=== PATIENT | male | born 1955 | race Caucasian/White ===

== ENCOUNTER 2017-06-02 11:58 | Day surgery (SDC) | payer OTHER ==
[~2017-06-02] VITALS: Ht 172.7 cm; Wt 94.8 kg
[~2017-06-02 11:58] MED LIST: 0.9% Sodium Chloride 1,000 ML IV SCH; ALLO300T2 PO; FLUT9.9S NS; GLUC-210 PO; HYG25 PO; LISI40TA PO; MULT-666 PO; Sodium Chloride LOK Flush 10 mL Syringe IV PRN; [UNRECOGNIZED DRUG - CODE] PO; fentaNYL-PF 50 mCg/mL 2 mL Inj IVPUSH PRN
[2017-06-02 13:08] VITALS: BP 116/75; PULSE 58; O2SAT 97
--- NOTE | 2017-06-02 14:26 | PCM.ENDCOL ---
Colonoscopy Date of Service: Jun 02, 2017 Physician Tyler Hauser MD Pre Procedure Diagnosis: Screening history of colon polyp Post Procedure Dx & Findings: Polyp hemorrhoids and diverticulosis Procedure Colonoscopy PROCEDURE IN DETAIL: Prep adequate Withdrawal time 10 minutes After unremarkable rectal examination the Olympus video colonoscope was inserted patient's anal canal and was advanced to cecum. Landmarks were identified including the ileocecal valve and appendiceal orifice. Scope was withdrawn systematically. Visualized colonic mucosa showed healthy shiny mucosa with normal healthy-appearing vasculature. In the ascending colon there were 2 polyps. They are both about 4 mm in size. They are both removed completely using cold snare. Patient had diverticulosis mostly in the sigmoid colon however patient had a few isolated ones all the way up to the ascending colon. In the rectum retroflexion was done which showed hemorrhoids. Anal canal was inspected carefully on the way out and hemorrhoids noted. Impression Polyp 2 status post complete removal Diverticuli Hemorrhoids History of polyps Recommendation Repeat colonoscopy in 5 years Diverticular diet Presedation Assessment Risks and Benefits Informed consent was obtained from the patient after all risks and benefits including but not limited to drug reaction, infection, pain, bleeding, perforation, as well as alternatives were discussed. Patient monitoring Continuous pulse oximetry, cardiac monitoring, blood pressure monitoring, IV access, and oxygen at 2L per nasal cannula. Periprocedural Fentanyl: Fentanyl 125mcg Incrementally Midazolam: Midazolam 6mg Incrementally Complications There were no periprocedural complications identified. Post Procedure Plan Post Procedure Recommendations 1. Restrict activities today. 2. Resume normal activities in the morning. 3. Resume medications. 4. Patient informed of normal post procedure side effects as bloating, drowsiness, blood streaking in the stool. 5. average risk CRCS. If colon polyps come back as: -Hyperplastic- can repeat colonoscopy in 10 years -Tubular adenoma- repeat colonoscopy in 5 years -Tubulovillous/villous adenoma- repeat colonoscopy in 3 years -If any dysplasia- return to clinic as soon as possible 6. Please don't hesitate to call me with any questions. Tyler Hauser MD Jun 02, 2017 14:26
[2017-06-02 14:28] VITALS: BP 105/70; PULSE 75; RESP 12; O2SAT 95
[2017-06-02 14:36] VITALS: BP 99/69; PULSE 86; RESP 12; O2SAT 96
[2017-06-02 14:45] VITALS: BP 108/77; PULSE 83; RESP 14; O2SAT 99
--- NOTE | 2017-06-08 12:05 | PATH ---
SURGICAL PATHOLOGY Attending Physician:Tyler Hauser M.D. CASE STATUS: Signed Out PATIENT NAME: GORDON LAMA PID: [id number] : 1955 DATE COLLECTED:06/02/2017 00:00 SPECIMEN: Colon, Polyp CLINICAL HISTORY: 1). ASCENDING POLYPS FINAL DIAGNOSIS: 1.ASCENDING POLYPS, BIOPSY: FIVE FRAGMENTS OF TUBULAR ADENOMA. ICD10 D12.6 GROSS DESCRIPTION: The specimen is received in one formalin filled container labeled with the patient's name, sublabeled "ascending polyps" and consists of multiple portions of tissue which aggregate to 0.3 x 0.3 x 0.2 CM. The specimen is entirely submitted in one cassette. 06/03/2017DC MICRO DESCRIPTION: See diagnosis. ICD-9 CODES: CPT CODES: 1: 97506 Electronically Signed Out James Palacios MD, PhD [facility], [place] [address] Technical component performed at [facility], [address] [place] [address] [address], [place], [address]
== END 2017-06-02 23:59 | disposition home or self-care (01) ==
LOC: END 11:58
PROVIDERS: ATTEND Internal Medicine
DX: Z12.11 Encounter for screening for malignant neoplasm of colon (principal); D12.2 Benign neoplasm of ascending colon; K57.30 Diverticulosis of large intestine without perforation or abscess without bleeding; K64.8 Other hemorrhoids; Z86.010 Personal history of colon polyps; I10 Essential (primary) hypertension; G47.30 Sleep apnea, unspecified
CPT/HCPCS: 45385; J2250; J3010; J7030